=== PATIENT | female | born 1955 | race Caucasian/White ===

== ENCOUNTER → 2021-09-13 02:03 | Outpatient (CLI) | payer BC, SELFPAY ==
--- NOTE | 2021-09-13 10:00 | DI.NM_ITS ---
Exam(s) NM HEPATOBILIARY CCK GRP EXAM: NM HEPATOBILIARY CCK GRP CLINICAL HISTORY: RUQ PAIN, R10.11. TECHNIQUE: Injected dose: 5 mCi Tc-99 mebrofenin Initial dynamic images: Per protocol. Post-Gallbladder fillin.2 mcg of CCK Addition images: Per protocol. COMPARISON: No exams were available for comparison FINDINGS: Normal hepatic transit time. Prompt excretion into the small bowel. Prompt excretion into the gallbladder. The gallbladder ejection fraction was 100 percent. IMPRESSION: 1. Normal examination. [facility] guidelines: Gallbladder visualization should be present by 3 hours. Delayed [id number] oliver sit beyond 60 min raises the suspicion for partial common bile duct (CBD) obstruction. Gallbladder ejection fraction <35% has a good correlation with acalculous disease (i.e., chronic acal culous cholecystitis, cystic duct syndrome, sphincter of Oddi disease).
== END ==
PROVIDERS: Visit Provider Student in an Organized Health Care Education/Training Program
DX: R10.11 Right upper quadrant pain (principal)
CPT/HCPCS: 78227